=== PATIENT | male | born 1995 | race Caucasian/White ===

== ENCOUNTER 2023-02-25 13:07 | Emergency (ER) | payer OTHER, SELFPAY ==
--- NOTE | 2023-02-25 13:15 | ED.GENADULT ---
HPI - General Adult General Chief complaint: Wound/Laceration Stated complaint: laceration rt hand Time Seen by Provider: 02/25/23 13:15 Source: patient Mode of arrival: ambulatory Limitations: no limitations History of Present Illness HPI narrative: 27-year-old male patient presents to the [facility] with complaints of a laceration to the right web of the thumb. Patient states he got upset today and squeezed a glass and broke it lacerated the web of the thumb. Patient states that his last tetanus shot was in 2018. Denies any numbness or tingling to the fingertips Related Data Home Medications Medication Instructions Recorded Confirmed aripiprazole 15 mg tablet mg 02/25/23 naltrexone 50 mg tablet mg 02/25/23 trazodone 50 mg tablet mg 02/25/23 Allergies Allergy/AdvReac Type Severity Reaction Status Date / Time No Known Allergies Allergy Verified 02/25/23 13:37 Review of Systems Review of Systems: CONSTITUTIONAL: Denies fever, chills, or sweats. EYES: Denies visual changes, redness, or discharge. ENT: Denies rhinorrhea, congestion, sore throat, or otalgia. CARDIOVASCULAR: Denies chest pain, palpitations, or edema. RESPIRATORY: Denies cough or dyspnea. GASTROINTESTINAL: Denies abdominal pain, nausea, vomiting, or diarrhea. GENITOURINARY: Denies dysuria or hematuria. SKIN: Denies rash or itching. positive laceration to right web of thumb MUSCULOSKELETAL: Denies back pain, joint pain, or myalgia. NEUROLOGIC: Denies headache, numbness, or weakness. PSYCHIATRIC: Denies anxiety or depression. PMFSH Past Medical History Medical History Major depressive disorder Family History Family History Grandparent Hypertension Family history of elevated blood lipids Cerebrovascular accident Social History Social History Smoking status: Never smoker Alcohol intake: current Comments At the time of my signature I agree with nursing past medical history, surgical, social, and family history. There is no relevant family history pertinent to the presenting complaint. Exam Narrative: GENERAL: Well-appearing, well-nourished, and in no acute distress. HEAD: Normocephalic, atraumatic. EYES: PERRLA and EOMI. ENT: Nares clear, no rhinorrhea or epistaxis. Mucous membranes moist. NECK: Supple. No lymphadenopathy CHEST: Clear to auscultation. No respiratory distress. HEART: Regular rate and rhythm. No murmur heard. Normal peripheral pulses. ABDOMEN: Soft, nontender, nondistended, normal active bowel sounds. EXTREMITIES: Normal range of motion. No edema. SKIN: Warm, dry, no rash. patient has approximately 1 cm laceration to the web of the hand between the right thumb and right index finger. Bleeding is controlled at this time. Patient has excellent range of motion of all digits of the right hand NEURO: No focal deficits. Alert and oriented x3. Course Course Level of Care: Express Care Visit Vital Signs Vital signs: Vital Signs Temperature 36.8 C 02/25/23 13:27 Pulse Rate 100 02/25/23 13:27 Respiratory Rate 16 02/25/23 13:27 Blood Pressure 146/83 H 02/25/23 13:27 Pulse Oximetry 100 02/25/23 13:27 Oxygen Delivery Room Air 02/25/23 13:27 Temperature 36.8 C 02/25/23 13:27 Pulse Rate 100 02/25/23 13:27 Respiratory Rate 16 02/25/23 13:27 Blood Pressure 146/83 H 02/25/23 13:27 Pulse Oximetry 100 02/25/23 13:27 Oxygen Delivery Room Air 02/25/23 13:27 Vital signs reviewed The patient has been informed that they may have pre-hypertension or Hypertension based on a BP reading in the department. I recommend that the patient call the primary care provider listed on their discharge instructions or a physician of their choice this week to arrange follow up for further evaluation of possible pre-hypertension or Hy
[2023-02-25 13:27] VITALS: BP 146/83; PULSE 100; RESP 16; TEMP 36.8; O2SAT 100
[2023-02-25] MEDS: TETANUS,DIPHTHERIA,AC PERTUSSIS ADULT (0.5 ML) BOOSTRIX IM (13:45)
== END 2023-02-25 14:13 | disposition home or self-care (01) ==
PROVIDERS: Emergency Provider Nurse Practitioner Family
DX: S61.411A Laceration without foreign body of right hand, initial encounter (principal); Z79.899 Other long term (current) drug therapy; Z23 Encounter for immunization; W25.XXXA Contact with sharp glass, initial encounter
CPT/HCPCS: 12001; 90471; 90715; 99212; G0463

== ENCOUNTER 2023-11-03 18:54 | Emergency (ER) | payer OTHER, MEDICAID, SELFPAY ==
[2023-11-03] VITALS (13 sets, daily range): BP systolic 128–150; BP diastolic 78–97; PULSE 82–112; RESP 15–27; TEMP 36.7; O2SAT 94–100
--- NOTE | 2023-11-03 19:09 | PC.NURSE ---
When asked if patient took the benadryl in an attempt to harm himself. collar separator aware of this.
--- NOTE | 2023-11-03 19:17 | PC.NURSE ---
farhat Cody, at bedside with patient to get him changed into green scrubs. Escobar to sit as vehicle safety inspector.
--- NOTE | 2023-11-03 19:19 | ECG_ITS ---
Test Date: 2023-11-03 19:32:16 Measurements Intervals Abbott Rate: 113 P: 52 UT: 159 QRS: 12 QRSD: 83 T: 37 QT: 322 QTc: 442 Interpretive Statements SINUS TACHYCARDIA POSSIBLE ANTERIOR MYOCARDIAL INFARCTION , OF INDETERMINATE AGE BORDERLINE ST-T WAVE ABNORMALITY- INFERIOR LEADS ABNORMAL ECG No previous ECG available for comparison Electronically Signed On 11-04-2023 06:32:49 CDT by Oracio León D.O.
--- NOTE | 2023-11-03 19:20 | PC.NURSE ---
Report received from MIKEY Valencia. Assumed care of patient at this time.
[2023-11-03 19:43] LABS: Basophils Percent Auto 0.2 % (0.2-1.2); Eosinophils Absolute Auto 0.1 K/mm3 (0-0.3); Hematocrit 45.4 % (42.0-52.0); Hemoglobin 16.3 g/dL (14.0-18.0); Immature Granulocyte Absolute 0.04 K/mm3 (0.00-0.031); Immature Granulocyte Percent A 0.4 % (0-0.5); Lymphocytes Absolute Auto 1.63 K/mm3 (0.9-3.2); Lymphocytes Percent Auto 16.3 % (18.3-44.2); Mean Corpuscular HGB Conc 35.9 g/dl (32-36); Mean Corpuscular Hemoglobin 31.8 pg (26-34); Mean Corpuscular Volume 88.5 fl (80-100); Mean Platelet Volume 9.7 fl (7.4-10.4); Monocytes Absolute Auto 0.6 K/mm3 (0.1-0.6); Monocytes Percent Auto 6.4 % (2.6-8.5); Neutrophils Absolute Auto 7.6 K/mm3 (1.3-6.7); Neutrophils Percent Auto 75.7 % (45.5-73.1); Platelet Count Result 269 k/mm3 (150-375); Red Blood Count 5.13 M/mm3 (4.6-6.20); Red Cell Distribution Width 11.5 % (11.5-14.5)
[2023-11-03 20:03] LABS: Alanine Aminotransferase 51 U/L (6-50); Albumin Level 5.3 g/dL (3.5-5.1); Alkaline Phosphatase 72 U/L (38-126); Anion Gap 17 mmol/L (4-12); Aspartate Amino Transferase 30 U/L (17-59); Bilirubin,Total 0.6 mg/dL (0.2-1.3); Blood Urea Nitrogen 7 mg/dL (9-20); Calcium 9.5 mg/dL (8.4-10.2); Carbon Dioxide 18 mmol/L (22-30); Chloride 104 mmol/L (98-107); Estimated CRCL calculation 138 ml/min; Estimated Glomerular Filt Rate > 60; Ethanol 15 mg/dL (<10); Glucose 95 mg/dL (65-110); Potassium 3.6 mmol/L (3.4-5.0); Sodium 139 mmol/L (137-145)
--- NOTE | 2023-11-03 20:17 | PC.NURSE ---
Patient's sitter calls this RN to room. Patient states I want to leave. This RN informed patient that he made suicidal statements and he stated earlier that he had a bad day and I am not feeling that way anymore. Patient informed that since those SI statements were made, that we need to protect him and keep him safe. That Crisis will come evaluate him when he is medically cleared. Patient verbalized understanding, sitter remains at bedside. Patient given water upon request. Patient easily redirectable at this time.
[2023-11-03 20:20] LABS: Influenza A QL RT-PCR Negative (Negative); Influenza B QL RT-PCR Negative (Negative); RSV RNA, RT-PCR Negative (Negative); SARS-CoV-2 RNA PCR Negative (Negative)
--- NOTE | 2023-11-03 20:42 | PC.NURSE ---
2034 Patient ambulated to the bathroom with steady gait to provide urine sample. Patient did not go back to room, was instructed by optical engineering technician who was sitter for patient and this RN. Patient was stating he did not want to go back in his room. ED security called. Patient then did go back to room. Patient back in room, sitter remains at bedside. Patient urine sent to lab.
[2023-11-03 20:50] LABS: Thyroid Stimulating Hormone Reflex 0.665 uIU/mL (0.465-4.68)
[2023-11-03 20:54] LABS: Amphetamine Screen Urine Negative (Negative); Barbiturate Screen Urine Negative (Negative); Benzodiazepines Screen Urine Negative (Negative); Cannabinoid Screen Urine Negative (Negative); Cocaine Screen Urine Negative (Negative); Methadone Screen Urine Negative (Negative); Opiate Screen Urine Negative (Negative); Phencyclidine Screen Urine Negative (Negative)
--- NOTE | 2023-11-03 21:18 | ED.GENADULT ---
HPI - General Adult General Chief complaint: Psychiatric Symptoms Stated complaint: took too much benadryl Time Seen by Provider: 11/03/23 19:19 History of Present Illness HPI narrative: patient 28-year-old gentleman who presents emergency department with chief complaint of suicidal thoughts. Patient reports that he has been having some intermittent thoughts of harming himself and reports that he took 3 Benadryl earlier today in the method harm self the patient states yesterday he was having thoughts of harming himself as well Related Data Home Medications Medication Instructions Recorded Confirmed aripiprazole 15 mg tablet mg 02/25/23 naltrexone 50 mg tablet mg 02/25/23 trazodone 50 mg tablet mg 02/25/23 Allergies Allergy/AdvReac Type Severity Reaction Status Date / Time No Known Allergies Allergy Verified 11/03/23 19:37 Review of Systems Review of Systems: A 10 system review of systems was completed on the patient and is negative except for what is stated in the HPI. Nursing and ancillary documentation was reviewed. [facility] Past Medical History Medical History Major depressive disorder Family History Family History Grandparent Hypertension Family history of elevated blood lipids Cerebrovascular accident Social History Social History Smoking status: Never smoker Alcohol intake: current Substance use type: does not use Exam Narrative: GENERAL: Well-appearing, well-nourished, and in no acute distress. HEAD: Normocephalic, atraumatic. EYES: PERRLA and EOMI. ENT: Nares clear, no rhinorrhea or epistaxis. Mucous membranes moist. NECK: Supple. CHEST: Clear to auscultation. No respiratory distress. HEART: Regular rate and rhythm. No murmur heard. Normal peripheral pulses. ABDOMEN: Soft, nontender, nondistended, normal active bowel sounds. EXTREMITIES: Normal range of motion. No edema. SKIN: Warm, dry, no rash. NEURO: No focal deficits. Alert and oriented x3. PSYCH: Normal mood and affect. Course Vital Signs Vital signs: Vital Signs Temperature 36.7 C 11/03/23 18:58 Pulse Rate 97 11/03/23 18:58 Respiratory Rate 16 11/03/23 18:58 Blood Pressure 150/97 H 11/03/23 18:58 Pulse Oximetry 98 11/03/23 18:58 Temperature 36.7 C 11/03/23 21:52 Pulse Rate 96 11/04/23 02:33 Respiratory Rate 19 11/04/23 02:33 Blood Pressure 129/94 H 11/03/23 23:45 Pulse Oximetry 100 11/04/23 01:40 Medical Decision Making MDM Narrative Medical decision making narrative: differential diagnosis includes suicidal ideation, depression, overdose laboratory studies were obtained on the patient showed No significant abnormality the patient is medically clear for psychiatric evaluation referral transferred admission Vital Signs Vital Signs: Vital Signs Temperature 36.7 C 11/03/23 18:58 Pulse Rate 97 11/03/23 18:58 Respiratory Rate 16 11/03/23 18:58 Blood Pressure 150/97 H 11/03/23 18:58 Pulse Oximetry 98 11/03/23 18:58 Temperature 36.7 C 11/03/23 21:52 Pulse Rate 96 11/04/23 02:33 Respiratory Rate 19 11/04/23 02:33 Blood Pressure 129/94 H 11/03/23 23:45 Pulse Oximetry 100 11/04/23 01:40 Lab Data 11/03/23 19:35 11/03/23 19:35 Labs: Lab Results 11/03/23 11/03/23 Range/Units 19:35 20:31 WBC 10.0 (4.5-10.0) K/mm3 RBC 5.13 (4.6-6.20) M/mm3 Hgb 16.3 (14.0-18.0) g/dL Hct 45.4 (42.0-52.0) % MCV 88.5 (80-100) fl MCH 31.8 (26-34) pg MCHC 35.9 (32-36) g/dl RDW 11.5 (11.5-14.5) % Plt Count 269 (150-375) k/mm3 MPV 9.7 (7.4-10.4) fl Immature Gran % (Auto) 0.4 (0-0.5) % Neut % (Auto) 75.7 H (45.5-73.1) % Lymph % (Auto) 16.3 L (18.3-44.2) % Creek %
--- NOTE | 2023-11-03 21:19 | PC.NURSE ---
2115 Called Crisis since patient is medically cleared by ERP. Crisis called, spoke with Sara, she requests Poison control be notified and cleared then give call back to have someone come evaluate patient. Poison control called, spoke with Yessica, pharmacist. Yessica requests to add on tylenol and salicylate level and to continue to monitor patient. Yessica also states that the patient may have opiate like symptoms from the Kratom. Yessica states patient is past the peak for benadryl and needs to be monitored back to baseline before being evaluated by Crisis. She states patient needs to be more alert.
[2023-11-03 21:42] LABS: Add Urine Microscopic? YES; Appearance Urine Clear (Clear); Bacteria Urine None Seen /hpf; Bilirubin Urine Negative (Negative); Blood Urine Negative (Negative); Color Urine Yellow (Yellow); Glucose Urine UA Negative (Negative); Ketones Urine 3+ mg/dL (Negative); Leukocyte Esterase Ur Negative LEU/UL (Negative); Nitrate Urine Negative (Negative); Non Pathogenic Casts 0-2; Protein Urine Trace mg/dL (Negative); RBC Urine 0-2 /hpf (0-2); Specific Grav Ur 1.009 (1.001-1.035); Squamous Epithelial Cell Urine None Seen /hpf (Few); Urobilinogen Urine 0.2 mg/dL (<2.0); WBC Urine 0-5 /hpf (0-3)
[2023-11-03 21:49] LABS: Acetaminophen < 10 ug/mL (10-30); Salicylate < 1.0 mg/dL (2-20)
--- NOTE | 2023-11-03 23:19 | PC.NURSE ---
3106 Yessica from Poison control calls back for follow. Yessica informed that patient has been ambulatory in room, has been more awake and talking and patient still passive and easily redirectable. Yessica states patient can be evaluated by Crisis if ERP feels patient is okay to do so. ERP notified. Crisis contacted again.
[2023-11-04] VITALS (9 sets, daily range): PULSE 85–107; RESP 13–26; O2SAT 97–100
--- NOTE | 2023-11-04 02:29 | PC.NURSE ---
0228 Bob with [facility] intake calls to state we are on a delay until 529, so the doctor wont be able to look at the patients chart until then. Bob states look for a follow up call after that time. earth mover notified.
--- NOTE | 2023-11-04 03:01 | PC.NURSE ---
0243 Cassie with [facility] calls to get triage information. She state she will call back after she presents information to the psychiatrist.
--- NOTE | 2023-11-04 04:45 | PC.NURSE ---
2811 Report called to MIKEY Thakur at [facility] intake. Report called to [phone]. Patient waiting for EMS to arrive to transport him there, ETA is 0700 per assistant secretary. Patient will be transferred with his chart and belongings. Patient going to room number 107 bed 1.
--- NOTE | 2023-11-04 06:21 | PC.NURSE ---
Patient requests to speak to this nurse. Patient states he wishes to leave, I didn't mean what I said earlier. I just want to go home. This RN informed patient that his has made suicidal statements and he acted on those thoughts and that those statements and actions are taken seriously. Patient informed he is accepted to [facility] for inpatient treatment and that he will be transferred there. Patient verbalized understanding but states I'd rather not go there, I would rather go home. Patient informed that he was evaluated by a Crisis team and they felt as well as the physician felt that he needs treatment so patient is being placed involuntary. Patient did verbalize understanding. This RN offered patient breakfast tray or something to drink, patient states I'll just sit here and wait then. This RN informed patient that an order will be placed for food in case he decides to eat. Sitter remains at bedside.
== END 2023-11-04 06:59 ==
PROVIDERS: Emergency Provider Emergency Medicine
DX: R45.851 Suicidal ideations (principal); F32.A Depression, unspecified; Z79.899 Other long term (current) drug therapy; Z11.52 Encounter for screening for COVID-19
CPT/HCPCS: 36415; 80053; 80307; 81001; 84443; 85025; 87637; 93005; 99285

== ENCOUNTER 2025-01-30 07:53 | Emergency (ER) | payer BC, SELFPAY ==
[2025-01-30 07:58] VITALS: BP 150/119; PULSE 99; RESP 18; TEMP 36.6; O2SAT 100
--- NOTE | 2025-01-30 08:08 | PC.NURSE ---
patient and grandmother unsure of when his last tdap vaccine was, provided a tdap information sheet at this time
--- NOTE | 2025-01-30 08:09 | ED.GENADULT ---
HPI - General Adult General Chief complaint: Wound/Laceration Stated complaint: R hand lac Time Seen by Provider: 01/30/25 08:09 History of Present Illness HPI narrative: 29-year-old male presents emergency department complaining of a puncture wound to the right hand. Yesterday he accidentally hit on the nail the base of the 5th digit on the palmar aspect. He is not sure his tetanus was last updated. Minimal pain. They are concerned about potential infection in requesting prophylactic antibiotics and tetanus booster Related Data Home Medications ?Medication ?Instructions ?Recorded ?Confirmed ?Last Taken ?Type aripiprazole 15 mg tablet mg 02/25/23 Unknown History naltrexone 50 mg tablet mg 02/25/23 Unknown History trazodone 50 mg tablet mg 02/25/23 Unknown History Allergies Allergy/AdvReac Type Severity Reaction Status Date / Time No Known Allergies Allergy Verified 01/30/25 07:54 Review of Systems Review of Systems: All systems reviewed & are unremarkable except as noted in HPI and below PMFSH Past Medical History Medical History Major depressive disorder Family History Family History Grandparent Hypertension Family history of elevated blood lipids Cerebrovascular accident Social History Social History Smoking status: Never smoker Alcohol intake: current Substance use type: does not use Exam Narrative: EXAMINATION OF ORGAN SYSTEMS/BODY AREAS: Constitutional: Vital signs per nursing GENERAL:[No acute distress, non-toxic appearing.] HEAD: Normal with no signs of head trauma. EYES: EOMI, conjunctiva normal ENT: Hearing grossly intact LUNGS: Nonlabored breathing. HEART: [Regular rate and rhythm] ABD: [Soft], [nontender to palpation] EXT: Normal range of motion SKIN: There is a small puncture wound at the base of the palmar aspect of the 5th digit on the right. He has full symmetric strength flexion extension all digits of the hand. There is no crepitus. No cellulitis. Minimally tender. No osseous tenderness no induration. NEURO: [Alert. No gross focal sensory or strength deficits.] PSYCH: Normal affect Course Vital Signs Vital signs: Vital Signs Temperature 36.6 C 01/30/25 07:58 Pulse Rate 99 01/30/25 07:58 Respiratory Rate 18 01/30/25 07:58 Blood Pressure 150/119 H 01/30/25 07:58 Pulse Oximetry 100 01/30/25 07:58 Oxygen Delivery Room Air 01/30/25 07:58 Temperature 36.6 C 01/30/25 07:58 Pulse Rate 99 01/30/25 07:58 Respiratory Rate 18 01/30/25 07:58 Blood Pressure 150/119 H 01/30/25 07:58 Pulse Oximetry 100 01/30/25 07:58 Oxygen Delivery Room Air 01/30/25 07:58 MDM Differential Diagnosis Differential Diagnosis: 29-year-old male presents with wound to the right hand. The suspected is a simple puncture wound but I will update his tetanus. They are understanding of the risks of antibiotics not limited to diarrhea. Will write him a short course of Keflex and otherwise return precautions discussed understanding verbalized discharged in stable condition. Discharge Plan Discharge Clinical Impression: Puncture wound Patient Disposition: Home Condition: Stable Instructions: Antibiotic Form, Puncture Wound (ED) Patient Language: [place] Irish Prescriptions: New cephalexin 500 mg capsule 500 mg PO Q8H 5 Days Qty: 15 0RF No Action trazodone 50 mg tablet naltrexone 50 mg tablet aripiprazole 15 mg tablet Follow-up/Referrals: UNKNOWN,DOCTOR [Primary Care Provider] Time of Disposition: 08:41
--- NOTE | 2025-01-30 09:05 | PC.NURSE ---
patient was anxious about getting TDAP vaccine, upon getting ready to give the vaccine patient was yelling and stating that he doesn't want it. patient refused vaccine, grandmother at bedside agreed to let him refuse vaccine
== END 2025-01-30 09:03 | disposition home or self-care (01) ==
LOC: ANHED 08:49
PROVIDERS: Emergency Provider Emergency Medicine
DX: S61.431A Puncture wound without foreign body of right hand, initial encounter (principal); Z23 Encounter for immunization; F32.9 Major depressive disorder, single episode, unspecified; W45.0XXA Nail entering through skin, initial encounter
CPT/HCPCS: 90715; 99283